=== PATIENT | female | born 1950 | race Caucasian/White ===

== ENCOUNTER 2017-12-16 12:55 | Emergency (ER) | payer OTHER ==
[~2017-12-16] VITALS: Ht 180.3 cm; Wt 86.8 kg
[~2017-12-16 12:55] MED LIST: HYDROCODON-ACE1 EAC7 PO; PANTOPRAZOLE SO40 MG PO
[2017-12-16 14:25] LABS: HEMATOCRIT 33.9 % (36.0-46.0); HEMOGLOBIN 11.1 G/DL (11.9-15.5); MCH 27.9 PG (29.0-34.0); MCHC 32.7 G/DL (30.0-36.0); MCV 85.2 FL (83-99); PLATELET COUNT 492 K/uL (156-360); RBC DIS.WIDTH-CV 14.1 % (11.8-14.6); RBC DIS.WIDTH-SD 44.2 % (39-53); RED BLOOD COUNT 3.98 M/uL (3.80-5.20); WHITE BLOOD COUNT 12.6 K/uL (4.1-10.2)
[2017-12-16 14:35] LABS: CHLORIDE 108 mEq/L (99-109); SODIUM 142 mEq/L (136-147)
[2017-12-16 14:36] LABS: MAGNESIUM 2.2 mg/dL (1.3-2.7)
[2017-12-16 14:37] LABS: GLUCOSE 90 mg/dL (70-99)
[2017-12-16 14:41] LABS: CREATININE 0.7 mg/dL (0.6-1.3); GFR ESTIMATE (CALCULATED) > 59 mL/min/
[2017-12-16 14:42] LABS: UREA NITROGEN (BUN) 10 mg/dL (9-23)
[2017-12-16 14:47] LABS: TROP-I INTERPRETATION NEGATIVE; TROPONIN-I < 0.01 ng/mL (0.0-0.30)
[2017-12-16] MEDS ORDERED: ASPIRIN81 M2 PO (17:09)
[2017-12-16] MEDS ORDERED: CARDIZEM30 MG PO (17:09)
[2017-12-16 17:45] VITALS: BP 111/67
== END 2017-12-16 17:45 | disposition home or self-care (01) ==
LOC: EME 12:55
PROVIDERS: Emergency Medicine
DX: I48.91 Unspecified atrial fibrillation (principal); R60.0 Localized edema; Z87.19 Personal history of other diseases of the digestive system; M19.90 Unspecified osteoarthritis, unspecified site; K21.9 Gastro-esophageal reflux disease without esophagitis; E78.5 Hyperlipidemia, unspecified; M81.0 Age-related osteoporosis without current pathological fracture; F17.200 Nicotine dependence, unspecified, uncomplicated
CPT/HCPCS: 71046; 80048; 83735; 83880; 84484; 85027; 93005; 99281; 99285; J1940